=== PATIENT | female | born 1975 | race African-American/Black ===

== ENCOUNTER 2020-07-08 10:17 | Emergency (ER) | payer BC ==
[2020-07-08 10:52] VITALS: BMI 27.8
[2020-07-08] MEDS ORDERED: BAMLANIVIMAB 700 MG, ETESEVIMAB 1,400 MG in SODIUM CHLORIDE 250 ML IVPB ONE (12:01)
[2020-07-08 13:02] VITALS: TEMP 98.6
[2020-07-08 13:02] LABS: BASO % 0.2 % (0-2.0); HEMATOCRIT 39.1 % (32.4-45.2); HEMOGLOBIN 13.3 GM/dL (10.7-15.3); LYMPH % 14.2 % (8-40); MCH 26.4 pg (25.7-33.7); MCHC 33.9 g/dl (32.0-36.0); MEAN CELL VOLUME 77.8 fl (80-96); MEAN PLT VOLUME 7.3 fl (7.5-11.1); MONO % 8.8 % (3.8-10.2); NEUT % 76.8 % (42.8-82.8); PLATELET COUNT 312 K/MM3 (134-434); RBC 5.03 M/mm3 (3.60-5.2); WHITE BLOOD COUNT 4.2 K/mm3 (4.0-10.0)
[2020-07-08 13:25] LABS: POTASSIUM 3.8 mmol/L (3.5-5.1)
[2020-07-08 13:26] LABS: BLOOD UREA NITROGEN 8.4 mg/dL (7-18); CALCIUM 9.6 mg/dL (8.5-10.1)
[2020-07-08 13:29] LABS: CREATININE 0.8 mg/dL (0.55-1.3)
[2020-07-08 14:05] VITALS: BP 122/68; PULSE 78
== END 2020-07-08 15:18 | disposition home or self-care (01) ==
LOC: JCOVINFU 10:17 → JER 10:17 → JCOVINFU 15:18
DX: U07.1 COVID-19 (principal)
CPT/HCPCS: 36415; 80048; 85025; 99284-25; M0239; Q0239; Q0245